=== PATIENT | female | born 1945 | race Caucasian/White ===

== ENCOUNTER → 2018-08-23 | Day surgery (SDC) | payer MEDICARE, BC ==
[~2018-08-23] MED LIST: Dextrose 5%-0.45% NaCl 1,000 ML IV SCH; Midazolam 1 MG/ML 2 ML SDV IV ONE; Midazolam 1 MG/ML 2 ML SDV ONE; Sodium Chloride 0.9% 10 ML Syringe FLUSH PRN; fentaNYL 100 MCG/2 ML SDV IV ONE; fentaNYL 100 MCG/2 ML SDV ONE
[2018-08-23 09:12] VITALS: BP 106/44
--- NOTE | 2018-08-23 12:09 | OR ---
DATE: 08/23/2018 PROCEDURE PERFORMED: Total colonoscopy, narrowband imaging including magnification views, and cold snare polypectomy. INSTRUMENT USED: PCF-H190DL Olympus video colonoscope. PREMEDICATIONS: Fentanyl 150 mcg intravenous, Versed 4 mg intravenous. Nasal O2 cannula. The procedure was done under pulse oximetry, BP recording, and content strategy lead. INDICATIONS: The patient with previous colonic adenoma and recent rectal bleeding. Colonoscopic examination is done for detection of any polypoid lesions and removal, endoscopic hemostasis therapy if needed. DESCRIPTION OF PROCEDURE: Initial rectal exam showed external hemorrhoidal tags. Rigid anoscopy was normal. The colonoscope was passed with ease up to the ileocecal area. Photographs were taken of the normal-appearing cecum, identified by double-bulged ileocecal folds. No bleeding was noted from any of the visualized areas at the commencement of the examination. There was some bilious kind of material that was noted bubbly. The bowel preparation was adequate in all the areas, Kennard scale 2. No stricture, no vascular ectasia, and no large isolated ulcerations seen. No evidence of diffuse inflammatory bowel disease in the form of friability, contact bleeding, or ulcerations. Probing the proximal sides of folds and flexures, using adequate distention, and clearing up the stool material, withdrawal of scope was made. In the proximal sigmoid colon, diminutive benign-appearing polyp was noted, NBI including magnification views obtained. Photographs were taken. Cold snare polypectomy was done. The tissue was retrieved and sent for histopathology. No bleeding was noted from any of the visualized areas at the completion of the examination. IMPRESSION: 1. External hemorrhoids. 2. Diminutive sigmoid polyp. The patient tolerated the procedure well. [facility] /[id number]
== END ==
LOC: DL.ENDO 06:20
PROVIDERS: ATTEND Internal Medicine Gastroenterology
DX: D12.5 Benign neoplasm of sigmoid colon (principal); K64.4 Residual hemorrhoidal skin tags; I10 Essential (primary) hypertension; M46.90 Unspecified inflammatory spondylopathy, site unspecified; G89.29 Other chronic pain; Z88.2 Allergy status to sulfonamides; Z88.8 Allergy status to other drugs, medicaments and biological substances; Z79.899 Other long term (current) drug therapy; Z87.39 Personal history of other diseases of the musculoskeletal system and connective tissue
CPT/HCPCS: 45385; J2250; J3010; J7042

== ENCOUNTER → 2019-09-07 | Day surgery (SDC) | payer MEDICARE, BC ==
[~2019-09-07] MED LIST changes: -Sodium Chloride 0.9% 10 ML Syringe FLUSH PRN
[2019-09-07 09:47] VITALS: BP 133/52; PULSE 52
--- NOTE | 2019-09-07 12:12 | OR ---
DATE: 09/07/2019 PROCEDURES: Esophagogastroduodenoscopy and multiple pinch biopsies. INSTRUMENT USED: GIF-HQ190 Olympus panendoscope. PREMEDICATIONS: Fentanyl 100 mcg intravenous, Versed 2 mg intravenous, nasal O2 cannula. The procedure was done under pulse oximetry, BP recording, and instrument lens grinder. INDICATION: The patient with persistent heartburn as well as dysphagia, unexplained and not responsive to medical measures. The esophagogastroduodenoscopy is performed for detection of any active erosive lesions, Keller esophagus and/or malignancy also under consideration, H pylori status to be determined, esophageal dilatations if indicated, endoscopic hemostasis therapy if needed. PROCEDURE IN DETAIL: The scope was passed with ease. Adequate visualization of the esophagus was made from proximal to distal areas. No upper esophageal lesions identified. No distal esophageal stricture. No uphill or downhill esophageal varices. No Melissa-Garcia tear. No evidence of erosive esophagitis by Lyman criteria. No esophageal polyp or tumor mass identified. Sliding hiatal hernia was noted. No proximal gastric varices noted. Gastric fundus examination by retroflexion showed benign diminutive gastric fundus polyp. No gastric ulcer, malignant mass, or vascular ectasia identified. Duodenal bulb showed no ulcer. Visualized second part of the duodenum was unremarkable. Multiple pinch biopsies were taken from the gastric antrum and proximal body and sent for PyloriTek test for H pylori, and if negative in an hour, the tissue is to be sent for histopathology. No bleeding was noted from any of the visualized areas. Photographs were taken of the duodenal bulb, gastric antrum, fundus, and distal esophagus. IMPRESSION: 1. Sliding hiatal hernia. 2. Diminutive gastric fundus polyps. The patient tolerated the procedure well. [facility] /[id number]
== END | disposition home or self-care (01) ==
LOC: DL.ENDO 06:01
PROVIDERS: ATTEND Internal Medicine Gastroenterology
DX: K31.7 Polyp of stomach and duodenum (principal); K44.9 Diaphragmatic hernia without obstruction or gangrene; I10 Essential (primary) hypertension; E78.5 Hyperlipidemia, unspecified; K58.9 Irritable bowel syndrome, unspecified; M85.80 Other specified disorders of bone density and structure, unspecified site; Z87.440 Personal history of urinary (tract) infections
CPT/HCPCS: 43239; 87077; J2250; J3010; J7042; 88305

== ENCOUNTER 2024-02-01 10:05 | Observation (INO) | payer MEDICARE, BC ==
[2024-02-01 11:03] LABS: BASOPHILS PERCENT AUTO 0.3 % (0.0-1.0); EOSINOPHILS PERCENT AUTO 0.6 % (1.0-3.0); HEMATOCRIT 40.7 % (37.0-47.0); HEMOGLOBIN 12.8 g/dL (12.0-16.0); LYMPHOCYTES PERCENT AUTO 15.6 % (20.5-50.1); MEAN CORPUSCULAR HEMOGLOBIN 29.8 pg (27.0-34.0); MEAN CORPUSCULAR HGB CONC 31.4 g/dL (33.0-35.0); MEAN CORPUSCULAR VOLUME 94.9 fL (80-100); MONOCYTES PERCENT AUTO 8.2 % (2-8); NEUTROPHILS PERCENT AUTO 75.3 % (42.2-75.2); PLATELET COUNT,PLT 184 10^3/uL (150-450); RED BLOOD CELL COUNT 4.29 10^6/uL (4.2-5.4); WHITE BLOOD CELL COUNT,WBC 7.1 10^3/uL (5.0-10.0)
[2024-02-01] MEDS: Sodium Chloride 0.9% 1,000 ML IV ONE ×2 (11:10→12:14)
[2024-02-01 11:25] LABS: A/G RATIO 0.86; ALBUMIN 3.2 g/dL (3.4-5.0); ANION GAP 11.3 mEq/L (7-13); BILIRUBIN TOTAL 1.4 mg/dL (0.2-1.0); BUN/CREATININE RATIO 53.5 (No establ ref range); CALCIUM 9.4 mg/dL (8.5-10.1); CREATININE 0.43 mg/dL (0.55-1.02); EST CRCL DRUG DOSING (CG) 89.44 mL/min; POTASSIUM,K 4.3 mmol/L (3.5-5.1); PROTEIN TOTAL,TP 6.9 g/dL (6.4-8.2)
[2024-02-01] MEDS: Iopamidol 612 MG/ML 100 ML Bottle IVPUSH ONE (11:47)
[2024-02-01 12:49] LABS: APPEARANCE,URINE CLEAR (CLEAR); BILIRUBIN,URINE NEGATIVE (NEGATIVE); COLOR,URINE YELLOW (YELLOW); GLUCOSE,URINE NEGATIVE (NEGATIVE); KETONES,URINE NEGATIVE (NEGATIVE); LEUKOCYTE ESTERASE,URINE NEGATIVE (NEGATIVE); NITRITE,URINE NEGATIVE (NEGATIVE); OCCULT BLOOD,URINE NEGATIVE (NEGATIVE); PROTEIN,URINE NEGATIVE (NEGATIVE); UROBILINOGEN,URINE 0.2 mg/dL (0.2-1.0)
[2024-02-01] MEDS: Magnesium Citrate Solution 296 ML Bottle PO ONE (13:47)
[2024-02-01] MEDS: Docusate Sodium 100 MG Cap PO ONE (13:47)
[2024-02-01] MEDS: Methylnaltrexone 12 MG/0.6 ML SDV SUBCUT ONE (14:02)
[2024-02-01] MEDS: Ondansetron 4 MG/2 ML SDV IVPUSH ONE (14:25)
[2024-02-01] MEDS ORDERED: oxyCODONE 5 MG Tab PO PRN (15:16)
[2024-02-01] MEDS: HYDROmorphone 0.5 MG/0.5 ML Syringe IVPUSH PRN (15:31)
[2024-02-01] MEDS: Piperacillin/Tazobactam 4.5 GM in Sodium Chloride 0.9% 100 ML IV ONE (15:42)
[2024-02-01] MEDS: Lidocaine 2% Viscous Solution 15 ML UD PO ONE (15:42)
[2024-02-01] MEDS ORDERED: Bisacodyl 10 MG Supp RECTAL PRN (16:18)
[2024-02-01] MEDS ORDERED: Acetaminophen 325 MG Tab GTUBE PRN (16:18)
[2024-02-01] MEDS ORDERED: DOCUSATE SODIUM 50 MG/5 ML GTUBE SCH (16:30)
[2024-02-01] MEDS ORDERED: GLYCOPYRROLATE 1 MG/5 ML GTUBE SCH (17:00)
[2024-02-01] MEDS: Ondansetron 4 MG/2 ML SDV IVPUSH SCH (17:45)
[2024-02-01] MEDS: Amitriptyline 25 MG Tab GTUBE SCH (22:15)
[2024-02-01] MEDS: Melatonin 3 MG Tab GTUBE SCH (22:15)
[2024-02-01] MEDS: Atenolol 50 MG Tab GTUBE SCH (22:16)
[2024-02-01] MEDS: Acetaminophen/HYDROcodone 325-10 MG Tab GTUBE PRN (22:17)
[2024-02-01] MEDS: Diclofenac Sodium 1% Gel 100 GM Tube TOP SCH (22:50)
[2024-02-02] MEDS: Piperacillin/Tazobactam 4.5 GM in Sodium Chloride 0.9% 100 ML IV SCH (00:01)
[2024-02-02 05:38] LABS: BASOPHILS PERCENT AUTO 0.3 % (0.0-1.0); HEMATOCRIT 33.4 % (37.0-47.0); HEMOGLOBIN 10.3 g/dL (12.0-16.0); LYMPHOCYTES PERCENT AUTO 10.3 % (20.5-50.1); MEAN CORPUSCULAR HGB CONC 30.8 g/dL (33.0-35.0); MEAN CORPUSCULAR VOLUME 97.4 fL (80-100); MONOCYTES PERCENT AUTO 7.8 % (2-8); NEUTROPHILS PERCENT AUTO 80.6 % (42.2-75.2); PLATELET COUNT,PLT 155 10^3/uL (150-450); RED BLOOD CELL COUNT 3.43 10^6/uL (4.2-5.4); WHITE BLOOD CELL COUNT,WBC 10.1 10^3/uL (5.0-10.0)
[2024-02-02 05:54] LABS: ANION GAP 5.4 mEq/L (7-13); CALCIUM 8.4 mg/dL (8.5-10.1); CREATININE 0.51 mg/dL (0.55-1.02); EST CRCL DRUG DOSING (CG) 73.89 mL/min; POTASSIUM,K 3.4 mmol/L (3.5-5.1)
[2024-02-02 08:14] VITALS: BP 105/53; PULSE 88
[2024-02-02] MEDS: Carboxymethylcellulose Sodium 1% Ophth Gel 0.4 ML UD EYEBOTH SCH (09:13)
[2024-02-02] MEDS: Atropine 1% Ophth Soln 5 ML Bottle SL PRN (09:13)
[2024-02-02] MEDS: Potassium Chloride 10% 20 MEQ/15 ML Soln 15 ML UD Cup GTUBE STA (09:41)
== END 2024-02-02 10:24 ==
LOC: DL.ED 10:05 → DL.MS 15:00
PROVIDERS: ADMIT Internal Medicine; ATTEND Internal Medicine
DX: K56.49 Other impaction of intestine (principal); R33.9 Retention of urine, unspecified; E86.0 Dehydration; K59.00 Constipation, unspecified; I10 Essential (primary) hypertension; E55.9 Vitamin D deficiency, unspecified; E66.9 Obesity, unspecified; E78.00 Pure hypercholesterolemia, unspecified; Z68.30 Body mass index [BMI] 30.0-30.9, adult; Z79.899 Other long term (current) drug therapy; Z88.8 Allergy status to other drugs, medicaments and biological substances; Z88.2 Allergy status to sulfonamides
CPT/HCPCS: 36415; 74176; 74177; 80048; 80053; 81003; 83690; 83735; 85025; 85610; A9270; J1171; J2212; J2405; J2543; J3490; J7030; Q9967; 99284